=== PATIENT | female | born 1945 | race Caucasian/White ===

== ENCOUNTER 2018-07-05 17:36 | Emergency (ER) | payer MEDICARE, MEDICAID ==
[~2018-07-05 17:36] MED LIST: ISOVUE-370 76%-LOCM 1 ML ONE
--- NOTE | 2018-07-05 19:06 | ULT ---
LEFT LOWER EXTREMITY VENOUS ULTRASOUND WITH DOPPLER: HISTORY: Evaluate for thrombus. COMPARISON: None. TECHNIQUE: Noble-scale, color-flow, Doppler imaging, and spectral wave-form analysis was performed of the left lo wer extremity venous system. FINDINGS: There is soft tissue swelling and edema. Evaluation is limited by patient position. There is lack of compressibility, with the presence of th rombus in the common femoral vein, femoral vein, and popliteal vein. There is also a lack of reuben sibility in the profunda vein and the greater saphenous vein. There is compressibility in the director of physical education ior tibial vein. There is still flow in the visualized left lower extremity venous system, suggestin g overall partial thrombosis. IMPRESSION: Partial thrombosis in the left lower extremity deep and superficial venous system. POS: VIRIDIANA
[2018-07-05 19:13] LABS: Bilirubin Negative (Negative); Blood, Urine Negative (Negative); Clarity CLEAR (Clear); Glucose, Urine (Dipstick) Negative (Negative); Leukocyte Small (Negative); Nitrite Negative (Negative); Protein, Urine (Dipstick) Negative (Neg-Trace); Specific Gravity, Urine 1.028 (1.002-1.036); pH, Urine 5.5 (5.0-9.0)
[2018-07-05 19:23] LABS: Bacteria/HPF None Seen HPF (None Seen); Hyaline Casts/LPF 4-6 HYALINE CAST LPF (0-3 Hyaline); Pathc Cast-AUWi Flag 0.43 (0-2.49); RBC/HPF 0-3 HPF (0-3); Squamous Epithelial 0-3 HPF (0-3)
[2018-07-05 19:39] LABS: #Basophils 0.1 thou/uL (0.0-0.2); #Eosinphils 0.2 thou/uL (0.0-0.7); #Lymphocytes 2.4 thou/uL (1.20-3.40); #Monocytes 0.8 thou/uL (0.11-0.59); #Neutrophils 6.1 thou/uL (1.40-6.50); %Basophils 0.7 % (0.0-1.0); %Eosinophils 2.1 % (0.0-10.0); %Lymphocytes 24.8 % (21.0-51.0); %Monocytes 8.4 % (0.0-10.0); Hemoglobin 12.5 g/dL (12.0-16.0); Mean Corpuscular HGB CONC 31.5 g/dL (32.0-36.0); Mean Corpuscular Hemoglobin 29.3 pg (27.0-31.0); Mean Platelet Volume 8.4 fL (7.4-10.4); Platelet Count 219 thou/uL (130-400); Red Blood Cell (RBC) Count 4.25 mill/uL (4.20-5.40); White Blood Cell (WBC) Count 9.5 thou/uL (4.8-10.8)
[2018-07-05 19:48] LABS: INR-International Normal Ratio 1.1; PTT 45.3 SEC (22.9-36.1); Prothrombin Time 14.3 SEC (12.0-14.7)
[2018-07-05] MEDS ORDERED: cefTRIAXone\\ROCEPHIN 1 GM VIAL ONE (19:58)
[2018-07-05 20:04] LABS: ALT (SGPT) 8 U/L (8-55); AST (SGOT) 11 U/L (5-34); Albumin 3.6 g/dL (3.4-4.8); Alkaline Phosphatase 82 U/L (40-150); Anion Gap 9 mmol/L (10-20); BUN (Urea Nitrogen) 12 mg/dL (9.8-20.1); Bilirubin, Total 0.5 mg/dL (0.2-1.2); Calc. Creatinine Clearance 0 mL/min (70-130); Carbon Dioxide 26 mmol/L (23-31); Chloride 106 mmol/L (98-107); Estimated GFR-MDRD 80; Globulin 3.4 g/dL (2.4-3.5); Glucose 114 mg/dL (83-110); Potassium 4.2 mmol/L (3.5-5.1); Sodium 137 mmol/L (136-145)
[2018-07-05 20:08] LABS: Troponin I Less than 0.010 ng/mL (< 0.028)
--- NOTE | 2018-07-05 21:33 | CT ---
CTA CHEST WITH CONTRAST: HISTORY: Coolness of the left leg. Positive DVT. Elevated D-dimer. COMPARISON: None. TECHNIQUE: Multiple contiguous axial images were obtained in a CTA of the chest with contrast per pulmonary embo lism protocol, and 3D oblique MIP reformats and direct coronal reformats were performed. FINDINGS: The pulmonary arteries are well opacified without filling defects to suggest pulmonary emboli. The h eart is normal in size without focal cardiac abnormality. No hilar or mediastinal lymphadenopathy is seen. Atelectasis is seen in the lung bases. There is a small calcified pleural plaque in the left lung ba se. No pneumothorax is seen. No pleural effusion or focal infiltrates are seen in the lungs. The visualized subdiaphragmatic structures are unremarkable. Degenerative changes are seen in the sp ine. The chest wall soft tissues are unremarkable. IMPRESSION: 1. No evidence of pulmonary thromboembolism. 2. Bibasilar atelectasis. POS: C
== END 2018-07-05 22:58 | disposition home or self-care (01) ==
LOC: ERS 17:36
DX: I82.402 Acute embolism and thrombosis of unspecified deep veins of left lower extremity (principal); N39.0 Urinary tract infection, site not specified; G30.9 Alzheimer's disease, unspecified; F02.81 Dementia in other diseases classified elsewhere, unspecified severity, with behavioral disturbance; F31.9 Bipolar disorder, unspecified; Z79.899 Other long term (current) drug therapy
CPT/HCPCS: 36415; 51701; 71275; 80053; 81003; 81015; 82553; 84484; 85025; 85610; 85730; 87086; 96365; A4353; J0696